=== PATIENT | female | born 1945 | race Caucasian/White ===

== ENCOUNTER 2018-12-06 19:58 | Inpatient (IN) | payer OTHER ==
[~2018-12-06] VITALS: Ht 165.1 cm; Wt 86.2 kg
[~2018-12-06 19:58] MED LIST: ASA325 PO; ASPIRIN81 MG PO; BUPROPION HCL75 MG PO; CALCIUM 600 +1 EAC2 PO; LISINOPRIL5 MG PO; PHENERGAN SUPP25 MG PO; PRAVASTATIN SOD40 MG PO; PROMETHEGAN12.5 MG PR
--- NOTE | 2018-12-06 21:27 | Diagnostic Imaging Report ---
EXAMINATION: Head CT without contrast. HISTORY:Fall. COMPARISON:Report of CT brain from 12/05/2012 and MRI brain from 12/06/2012. Prior images are not available for comparison at the time of interpretation. TECHNIQUE: Multidetector axial images were obtained from the foramen magnum to the vertex without contrast. The images were reconstructed using brain and bone algorithms. Thin section brain images were reformatted into coronal and sagittal planes. Dose modulation, iterative reconstruction, and/or weight based adjustment of the mA/kV was utilized to reduce the radiation dose to as low as reasonably achievable. Intravenous contrast: None IMAGE QUALITY: Suboptimal evaluation particularly at the level of skull base and posterior fossa due to streak artifacts. FINDINGS: Skull/scalp: No lytic or blastic. lesions. No surgical changes. Incidental hyperostosis frontalis interna. Parenchyma: Nonspecific bilateral frontoparietal confluent and patchy white matter hypodensity are likely related to small vessel ischemic changes. No acute hemorrhage, mass or acute major vascular territorial infarct. Arteries: No density suggestive of thrombosis. Atherosclerotic calcification in bilateral carotid siphon. Dural sinuses: No abnormal density suggestive of thrombosis. Ventricles: No hydrocephalus or displacement. Extra-axial spaces: No abnormal density. Brain volume: Normal for age. Craniocervical junction: No mass, Chiari malformation, or basilar invagination. Sella: No mass. Paranasal/mastoid sinuses: Imaged portions unremarkable. IMPRESSION: No acute posttraumatic intracranial abnormality. Chronic findings: Moderate supratentorial white matter microvascular ischemic changes. Signed by: Dr. Latosha Buckley M.D. on 12/06/2018 9:24 PM
--- NOTE | 2018-12-06 21:32 | Diagnostic Imaging Report ---
History: Fall. Comparison studies: None Technique: Axial images were obtained through the cervical region.. Coronal and sagittal images reconstructed from the axial data. Dose modulation, iterative reconstruction, and/or weight based adjustment of the mA/kV was utilized to reduce the radiation dose to as low as reasonably achievable. Intravenous contrast: None Findings: Fractures: None. Soft tissue injuries: None. Atlantoaxial articulation: Intact. Alignment: Loss of normal cervical lordosis is either positional or due to muscle spasm. No scoliosis. 1.5 mm grade 1 retrolisthesis at level C5-C6, is likely degenerative. Cervicomedullary junction: No abnormalities. The foramen magnum is patent. Soft tissues: No abnormalities. Vertebrae: No fractures, infection or neoplasm. Degenerative changes: C3-C4: Mild left foraminal stenosis due to facet and uncovertebral arthrosis. C4-C5: Moderate degenerative disc disease. Posterior disc osteophyte complex results in mild canal stenosis. Mild right foraminal stenosis due to uncovertebral arthrosis. C5-C6: Moderate degenerative disc disease. Posterior disc osteophyte complex without canal stenosis. Mild bilateral foraminal stenosis due to uncovertebral arthrosis. C6-C7: Moderate to severe degenerative disc disease. Moderate left foraminal stenosis due to uncovertebral arthrosis.. IMPRESSION: 1. No acute cervical spine fracture or dislocation. Loss of normal cervical lordosis is either positional or due to muscle spasm. 2. Ligament, spinal cord and or vascular abnormalities cannot be excluded on the basis of this examination. 3. Cervical spondylosis as detailed above. Signed by: Dr. Latosha Buckley M.D. on 12/06/2018 9:29 PM
--- NOTE | 2018-12-06 21:51 | Diagnostic Imaging Report ---
WRIST COMPLETE RIGHT - 3 views HISTORY: Pain COMPARISON: None available. FINDINGS: See impression. IMPRESSION: Questionable tiny avulsion fracture of the distal radial styloid process. Otherwise, no evidence of acute displaced fracture or dislocation of the right wrist. Severe first carpometacarpal degenerative changes. Signed by: Dr. Giovany Corral MD on 12/06/2018 9:48 PM
--- NOTE | 2018-12-06 21:53 | Diagnostic Imaging Report ---
KNEE RIGHT THREE VIEWS - 3 views HISTORY: Pain COMPARISON: None available. FINDINGS: See impression. IMPRESSION: Transverse mildly displaced fracture of the mid patella. Mild tricompartmental degenerative changes of the right knee. Signed by: Dr. Giovany Corral MD on 12/06/2018 9:50 PM
[2018-12-06] MEDS ORDERED: ULTRAM50 MG PO (23:01)
[2018-12-07] VITALS (8 sets, daily range): BP systolic 107–139; BP diastolic 58–87
--- NOTE | 2018-12-07 00:19 | NUR ---
Pt's imaging reviewed- shows mildly displaced patella fracture, and distal radio-styloid fracture. Pt did not want medication in the ED. Pt placed on a knee immobilizer and wrist splint to be discharged home with f/u. Pt informed Dr. Gonzalez would be contacted to arrange for outpt services. Spoke to family/pt at length about services in the home to assist in mobility. Daughter also stated she would staying with the patient. At time of discharge, family member(s) began yelling at nursing staff that patient can not be discharged home "like this". Nursing staff was assisting pt to the bathroom. Attempts made to speak to patient's daughter, however, daughter continued to shout and scream stating- "you are useless and good for nothing, you have done nothing for my mother, all you are doing is seeing other patients, this is the worst hospital in the world". Despite several attempts to interject and actually tell the daughter that we will be admiting the pt for monitoring, ortho evaluation and pain she would not allow me to speak. Family continued to berate myself nursing staff, escalating the volume of their voices in the hallway- stating their mother wasn't cared for. Pt informed she would be admitted. Pt continued to refuse pain medicine, local wound care performed. Dr. Nichols consulted.
--- NOTE | 2018-12-07 00:20 | NUR ---
CALLED FOR BATHROOM ASSIST WITH PT. DAUGHTER WAS SCREAMING THAT HER MOTHER NEEDS HELP TO THE RESTROOM WHILE ALL OF US WAS JUST SITTING AROUND, DISPITE TWO STAFF MEMBERS ALREADY IN THERE HELPING PT. PT ANGRY STATING THAT SHE CAN'T DO IT, SHE CAN'T GET UP AND SHE WON'T BE ABLE TO DO ANYTHING AT HOME. (FAMILY STATES THAT THEY ARE FROM OUT OF TOWN AND PT LIVES ALONE. PT WAS ASSISTED TO THE COMMODE WITH THREE STAFF MEMBERS, TWO HELPING WITH STANDING AND PIVOTING AND THE OTHER TO MOVE THE WC. THE PT FOR THE MOST PART IS A TWO PERSON ASSIST. IN THE MEAN TIME THE DAUGHTER WAS STILL TALKING DOWN TO THE DR AND STAFF SAYING THAT THIS WAS THE WORST HOSPITAL EVER AND THAT WE WERE NOT DOING ANYTHING FOR HER MOTHER. NURSING ELA TEACHER SITTING AT THE DESK, AWARE OF THE SITUATION.
[2018-12-07] MEDS ORDERED: ONDANSETRON HCL INJ 2MG/ML 2ML 2 MG/ML VIAL IV PRN (00:30)
--- NOTE | 2018-12-07 00:30 | NUR ---
PATIENT HELPED TO THE BATHROOM, PATIENT COMPLAINING OF PAIN BUT STATES SHE REFUSES TO TAKE ANY MEDICATION. PATIENT STATES THAT PAIN MEDICATION MAKES HER NAUSEATED, BUT COMPLAINTS OF 10/10 PAIN. PATIENT HELPED ON TO WHEELCHAIR, AND ROLLED TO BATHRROM. WHILE IN BATHROOM PATIENT STATES SHE CANNOT GET UP DUE TO KNEE IMOBILIZER SO TAKEN OFF. PATIENT FAMILY MEMBER SCREAMING AND CUSSING AND ME AND JAZMINE THAT WE NEED TO GET HER UP AND "YOUR NOT HELPING HER". DESPITE US HELPING HER FOR 20 MINUTES AND FAMILY MEMBER JUST WANTCHING US, HE BYRNE MEMBER STILL CUSSING AND BEING VERY RUDE. PATIENT STATES THERE ARE NURSES IN THE STATION AND DEMANDING THAT I GO AND GET MORE NURSES TO HELP BECAUSE THEY "ARE BEING LAZY". KNEE IMMOBILER OFF AND PATIENT HELPED LIFTED UPA ND PIVOTS TO TOILET WITH HELP. PATIENT COMPLAINING OF PAIN, AGAIN STATES SHE DOES NOT WANT TO TAKE PAIN MEDICATION. PATIENT AND FAMILY MEMBERS EXPLAINED THAT PAIN WILL BE IN PAIN LONG SHE CHOOSES TO NOT TAKE PAIN MEDICATION, EXPLAINED FRACTURES IN GENERAL ARE PAINFUL AND THE ONLY WAY TO HELP WITH PAIN IS PAIN MEDICATION. PATIENT AND FAMILY MEMBERS THEN STATE THEY WILL ALLOW PATIENT TO TAKE PAIN MEDICATION, MICHAELIGERANT FAMILY MEMBER LEFT HOSPITAL AT THIS POINT. PATIENTS EDUCATED ABOUT FRACTURES AND TREATMENT, PATIENT TOLD SHE WILL BE ADMITTED DUE TO PAIN, BUT EXPLAINED SHE NEEDS TO TAKE PAIN MEDICATION SO SHE CAN REDUCE HER AMOUNT OF PAIN. WHEN PAIN IS REDUCED THEN THAT WILL MAKE IT LESS PAINFUL FOR HER TO AMBULATE.
[2018-12-07] MEDS ORDERED: TRAMADOL HCL 50 MG TAB PO PRN (01:00)
--- NOTE | 2018-12-07 01:06 | NUR ---
dr sorto approved no iv on patient for observation.
--- OUTSIDE RECORDS SUMMARY | 2018-12-07 01:23 | XMS REPORT ---
Author Author [facility] Address Unknown Phone Unavailable Care Team Providers Care Mat Worker Name Role Phone Hedy PASTOR Unavailable Unavailable Problems This patient has no known problems. Allergies, Adverse Reactions, Alerts This patient has no known allergies or adverse reactions. Medications This patient has no known medications. Results Test Description Test Time Test Comments Text Results Atomic Results Result Comments KNEE RIGHT THREE VIEWS 2018-12-06 21:48:00 [place] [address] Patient Name: LUCIANO MYLES MR #: [id number] : 1945 Age/Sex: 73/F Req #: [id number] [facility] Physician: Ordered by: FAVIAN PASTOR MD Report #: [id number] Location: ER Room/Bed: Procedure: [id number] DX/KNEE RIGHT THREE VIEWS Exam Date: 12/06/18 Exam Time: 2114 REPORT STATUS: Signed KNEE RIGHT THREE VIEWS - 3 views HISTORY: Pain COMPARISON: None available. FINDINGS: See impression. IMPRESSION: Transverse mildly displaced fracture of the mid patella. Mild tricompartmental degenerative changes of the right knee. Signed by: Dr. Giovany Campos MD on 12/06/2018 9:50 PM Dictated By: GIOVANY CAPMOS MD 935 Transcribed By: APARNA on 12/06/182149 COPY TO: FAVIAN PASTOR MD WRIST COMPLETE RIGHT 2018-12-06 21:44:00 [place] [address] Patient Name: LUCIANO MYLES MR #: [id number] : 1945 Age/Sex: 73/F Req #: [id number] Adm Physician: Ordered by: FAVIAN PASTOR MD Report #: [id number] Location: ER Room/Bed: Procedure: [id number] DX/WRIST COMPLETE RIGHT Exam Date: 12/06/18 Exam Time: 2114 REPORT STATUS: Signed WRIST COMPLETE RIGHT - 3 views HISTORY: Pain CO MPARISON: None available. FINDINGS: See impression. IMPRESSION: Questionable tiny avulsion fracture of the distal radial styloid process. Otherwise, no evidence of acute displaced fracture or dislocation of the right wrist. Severe first carpometacarpal degenerative changes. Signed by: Dr. Giovany Campos MD on 12/06/2018 9:48 PM Dictated By: GIOVANY CAMPOS MD 47 Transcribed By: APARNA on 12/06/182147 COPY TO: FAVIAN PASTOR MD CT CERVICAL SPINE WO 2018-12-06 21:24:00 [place] [address] Patient Name: LUCIANO MYLES MR #: [id number] : 1945 Age/Sex: 73/F Req #: [id number] Adm Physician: Ordered by: FAVIAN PASTOR MD Report #: [id number] Location: Room/Bed: Procedure: [id number] CT/CT CERVICAL SPINE WO Exam Date: 12/06/18 Exam Time: 2100 REPORT STATUS: Signed History: Fall. Comparison studies: None Techn ique: Axial images were obtained through the cervical region.. Coronal and sagittal images reconstructed from the axial data. Dose modulation, iterative reconstruction, and/or weight based adjustment of the mA/kV was utilized to reduce the radiation dose to as low as reasonably achievable. Intravenous contrast: None Findings: Fractures: None. Soft tissue injuries: None. Atlantoaxial articulation: Intact. Alignment: Loss of normal cervical lordosis is either positional or due to muscle spasm. No scoliosis. 1.5 mm grade 1 retrolisthesis at level C5-C6, is likely degenerative. Cervicomedullary junction: No abnormalities. The foramen magnum is patent. Soft tissues: No abnormalities. Vertebrae: No fractures, infection or neoplasm. Degenerative changes: C3-C4: Mild left foraminal stenosis due to facet and uncovertebral arthrosis. C4-C5: Moderate degenerative disc disease. Posterior disc osteophyte complex results in mild canal stenosis. Mild right foraminal stenosis due to uncovertebral arthrosis. C5-C6: Moderate degenerative disc disease. Posterior disc osteophyte complex without canal stenosis. Mild bilateral foraminal stenosis due to uncovertebral arthrosis. C6-C7: Moderate to severe degenerative disc disease. Moderate left foraminal stenosis due to uncovertebral arthrosis.. IMPRESSION: 1. No acute cervical spine fracture or dislocation. Loss of normal cervical lordosis is either positional or due to muscle spasm. 2. Ligament, spinal cord and or vascular abnormalities cannot be excluded on the basis of this examination. 3. Cervical spondylosis as detailed above. Signed by: Dr. Latosha Buckley M.D. on 12/06/2018 9:29 PM Dictated By: LATOSHA BUCKLEY MD 28 Transcribed By: APARNA on 12/06/182128 COPY TO: FAVIAN PASTOR MD CT BRAIN WO 2018-12-06 21:20:00 [place] [id number] [place] [id number] Patient Name: LUCIANO MYLES MR #: [id number] : 1945 Age/Sex: 73/F Req #: [id number] Adm Physician: Ordered by: FAVIAN PASTOR MD Report #: [id number] Location: ER Room/Bed: Procedure: [id number] CT/CT BRAIN WO Exam Date: 12/06/18 Exam Time: 2099 REPORT STATUS: Signed EXAMINATION: Head CT without contrast. HISTORY:Fall. COMPARISON:Report of CT brain from 12/05/2012 and MRI brain from 12/06/2012. Prior images are not available for comparison at the time of interpretation. TECHNIQUE: Multidetector axial images were obtained from the foramen magnum to the vertex without contrast. The images were reconstructed using brain and bone algorithms. Thin section brain images were reformatted into coronal and sagittal planes. Dose modulation, iterative reconstruction, and/or weight based adjustment of the mA/kV was utilized to reduce the radiation dose to as low as reasonably achievable. Intravenous contrast: None IMAGE QUALITY: Suboptimal evaluation particularly at the level of skull base and posterior fossa due to streak artifacts. FINDINGS: Skull/scalp: No lytic or blastic. lesions. No surgical changes. Incidental hyperostosis frontalis interna. Parenchyma: Nonspecific bilateral frontoparietal confluent and patchy white matter hypodensity are likely related to small vessel ischemic changes. No acute hemorrhage, mass or acute major vascular territorial infarct. Arteries: No density suggestive of thrombosis. Atherosclerotic calcification in bilateral carotid siphon. Dural sinuses: No abnormal density suggestive of thrombosis. Ventricles: No hydrocephalus or displacement. Extra-axial spaces: No abnormal density. Brain volume: Normal for age. Craniocervical junction: No mass, Chiari malformation, or basilar invagination. Sella: No mass. Paranasal/mastoid sinuses: Imaged portions unremarkable. IMPRESSION: No acute posttraumatic intracranial abnormality. Chronic findings: Moderate supratentorial white matter microvascular ischemic changes. Signed by: Dr. Latosha Buckley M.D. on 12/06/2018 9:24 PM Dictated By: LATOSHA BUCKLEY MD 23 Transcribed By: APARNA on 12/06/182123 COPY TO: FAVIAN PASTOR MD
[2018-12-07] MEDS ORDERED: IBUPROFEN 400 MG TAB PO PRN (01:30)
[2018-12-07] MEDS: ONDANSETRON HCL 4 MG ORAL DISINTEGRATING TAB PO PRN ×2 (01:31→18:04)
[2018-12-07] MEDS: MORPHINE SULFATE INJ 4 MG/ML INJ 1ML IV PRN ×2 (03:12→18:04)
--- NOTE | 2018-12-07 06:02 | NUR ---
Dr. Elizondo called and ordered to consult Dr. Aguilera for medical management, Dr. Aguilera called, and message left.
--- NOTE | 2018-12-07 06:49 | NUR ---
Dr. Nichols acknowledged consult.
--- NOTE | 2018-12-07 06:55 | NUR ---
Patient endorsed to next shift for continuity of care.
[2018-12-07] MEDS ORDERED: CELECOXIB 200 MG CAP PO PRN (10:30)
--- NOTE | 2018-12-07 16:54 | History and Physical ---
PRIMARY CARE PHYSICIAN: Jonathan Gonzalez MD BAND PRESSER: Dr. Wesley Nichols. Patient has coverage. CHIEF COMPLAINT: Status post fall with right transverse mildly displaced fractures of the mid patella. Right wrist questionable tiny avulsion fracture of the distal radial styloid process. HISTORY OF PRESENT ILLNESS: The patient is a pleasant 73-year-old female with accidental fall, it occurred while she was walking, fell on her face and on the right side, suffered right transverse mildly displaced fracture of the mid patella. The patient is having difficulty with movement. She is unable to ambulate. The patient is admitted for possible orthopedic surgical intervention. PAST MEDICAL HISTORY: 1. Coronary artery disease with stent back in 2010. 2. Hypertension. 3. Dyslipidemia. PAST SURGICAL HISTORY: 1. Right total hip replacement. 2. Coronary stent. SOCIAL HISTORY: The patient does not smoke or use alcohol. No recreational drugs. ALLERGIES: CODEINE. HOME MEDICATIONS: The patient is on: 1. Aspirin. 2. Vitamin D3. 3. Lisinopril. 4. Pravastatin. 5. Promethazine. PHYSICAL EXAMINATION: VITAL SIGNS: Temperature is 98, blood pressure 126/61, pulse rate is 55, and respirations 18. GENERAL: The patient is not in acute distress. She is awake. HEENT: Normocephalic and atraumatic. Anicteric. NECK: Supple grossly. PULMONARY: Clear. CARDIOVASCULAR: Regular rate and rhythm. ABDOMEN: Soft and unremarkable. EXTREMITIES: Right knee swelling status post fall with mid patella fracture. Right wrist on brace. Multiple bruises. NEUROLOGIC: No focal deficit. LABORATORY DATA: None for now. We will obtain. IMPRESSION: 1. Right transverse mildly displaced fracture of the mid patella. 2. Right wrist sprain. PLAN: Consultation with Dr. Wesley Nichols. Ice packing. DVT prophylaxis. Pain control. Resume home medication. We will hold off aspirin for now. MD KHOA Teixeira/MODL /[id number]
[2018-12-07] MEDS: CALCIUM CARBONATE PO SCH (17:00)
[2018-12-07] MEDS: VITAMIN D3 PO SCH (17:00)
[2018-12-07] MEDS: SENNOSIDES 8.6 MG TAB PO SCH (18:04)
--- NOTE | 2018-12-07 19:00 | NUR ---
RECEIVED REPORT FROM DAY NURSE. PATIENT IS RESTING COMFORTABLY IN BED. BED IS IN LOWEST POSITION AND CALL BEL IS WITHIN REACH. WILL CONTINUE TO MONITOR PATIENT.
[2018-12-07] MEDS: HEPARIN SOD (PORCINE) 5,000 UNIT/ML VIAL SC SCH (21:00)
[2018-12-08] VITALS (7 sets, daily range): BP systolic 130–150; BP diastolic 59–76
--- NOTE | 2018-12-08 07:13 | NUR ---
report given to day nurse. patient is resting comfortably in bed. bed is in lowest position and call motley is within reach.
[2018-12-08] MEDS: HEPARIN SOD (PORCINE) 5,000 UNIT/ML VIAL SC SCH ×2 (08:05→20:31)
[2018-12-08] MEDS: LISINOPRIL 2.5 MG TAB PO SCH (08:06)
[2018-12-08] MEDS: SENNOSIDES 8.6 MG TAB PO SCH ×2 (08:06→17:13)
[2018-12-08] MEDS: CALCIUM CARBONATE PO SCH ×2 (08:13→17:18)
[2018-12-08] MEDS: VITAMIN D3 PO SCH ×2 (08:13→17:18)
--- NOTE | 2018-12-08 09:51 | Consultation ---
DATE OF CONSULTATION: 12/07/2018 CHIEF COMPLAINT: Right knee and right wrist pain. HISTORY OF PRESENT ILLNESS: This patient is a 73-year-old female, who presents to the hospital complaining of right knee and right wrist pain. The patient states that yesterday she was walking into a restaurant, she tripped and fell, landing on her right knee and right wrist. She states that she was unable to get up and bear weight on the right leg. She was brought in by EMS to [facility] ER. She had x-rays of the right wrist and right knee and Orthopedics was consulted. She states prior to the fall that she walked independently. PAST MEDICAL HISTORY: See H and P. PAST SURGICAL HISTORY: Right total hip replacement with our service. SOCIAL HISTORY: The patient denies smoking or ETOH use. ALLERGIES: CODEINE. MEDICATIONS: See MAR. PHYSICAL EXAMINATION: In general, this is a pleasant, well-nourished, female, who is in no apparent distress. She is awake, alert, and oriented appropriately. Gross inspection of her right wrist shows her to be in a thumb spica removable wrist brace. This was removed to inspect the soft tissues. There is some mild swelling in the wrist. She has isolated tenderness to palpation over the radial styloid. She has diminished range of motion in the wrist. She can make a comprehensive fist. Distal neurovascular exam of the right upper extremity is intact. Gross inspection of her right knee shows moderate swelling. There is some slight bruising around the knee. The knee is diffusely tender to palpation. I did not test range of motion given her level of discomfort. She cannot do a straight leg raise without an extensor lag. The knee appears grossly stable to varus and valgus stress. Distal motor exam at the right ankle is intact. Distal neurovascular exam on the right lower extremity is normal. IMAGING: X-rays of the right wrist show a nondisplaced radial styloid fracture. X-rays of the right knee show a displaced transverse fracture of the patella. ASSESSMENT AND PLAN: This is a 73-year-old female with a right distal radius fracture and a right patellar fracture. The treatment was discussed with the patient. I explained the fracture in her wrist can be treated nonsurgically. She will continue to use the removable wrist brace. I explained the right patellar fracture is surgical. The risks and benefits of the surgery were explained. The recovery was discussed. The patient states she understands and wishes to proceed. We will plan on open reduction and internal fixation of the right patella on Sunday next week. All the patient's questions were answered and she agrees with the plan. Thank you for the consultation. Dictated by Da Frank PA-C MD BRITNEY Sanchez/JESUS /[id number]
[2018-12-08] MEDS ORDERED: BISACODYL 10 MG SUPP PR PRN (10:15)
[2018-12-08] MEDS ORDERED: MAGNESIUM HYDROXIDE 30 ML UDC PO PRN (10:15)
--- NOTE | 2018-12-08 14:15 | NUR ---
PT ASKED TO BE PICKED UP AND PLACED ON BEDSIDE COMMODE, BED ANDREWS OFFERED, PT REFUSED BED ANDREWS, PT EDUCATED ON PROPER BODY MECHANICS AND TRANSFER PROTOCOL, PT REMAINS INSISTING TO BE PICKED UP AND PLACED ON BEDSIDE COMMODE. CHARGE NURSE GREY BRUNNER RN NOTIFIED. CHARGE NURSE AT BEDSIDE.
--- NOTE | 2018-12-08 19:24 | NUR ---
report given to oncoming nurse. pt stable.
--- NOTE | 2018-12-08 19:25 | NUR ---
report given to oncoming nurse. pt stable.
--- NOTE | 2018-12-08 19:28 | NUR ---
Bedside report and walking rounds complete. Pt resting in bed and in no apparent distress. Room air, no tele. Pt family at bedside. All safety measures ensured, bed alarm on, and pt call motley near. Pt encouraged to use call motley for assistance.
[2018-12-08] MEDS: PRAVASTATIN 20 MG TAB PO SCH (20:30)
[2018-12-08] MEDS: ONDANSETRON HCL 4 MG ORAL DISINTEGRATING TAB PO PRN (21:29)
[2018-12-08] MEDS: MORPHINE SULFATE INJ 4 MG/ML INJ 1ML IV PRN (21:29)
[2018-12-09] VITALS (8 sets, daily range): BP systolic 99–127; BP diastolic 52–68
--- NOTE | 2018-12-09 01:32 | NUR ---
Pt assisted to bedside commode with help of myself and 2 techs. Pt had large BM. Pt cleaned and bed changed. Pt tolerated well and stated she feels much better after having BM.
--- NOTE | 2018-12-09 07:15 | NUR ---
received patient lying in bed with eyes open and tv on. family at bedside. patient appears to be in pleasant mood, smiling. no c/o pain at this time. call light within reach.
--- NOTE | 2018-12-09 07:33 | NUR ---
Bedside report and walking rounds complete.
[2018-12-09] MEDS: HEPARIN SOD (PORCINE) 5,000 UNIT/ML VIAL SC SCH ×2 (08:12→21:34)
[2018-12-09] MEDS: VITAMIN D3 PO SCH ×2 (08:12→16:48)
[2018-12-09] MEDS: CALCIUM CARBONATE PO SCH ×2 (08:12→16:48)
[2018-12-09] MEDS: SENNOSIDES 8.6 MG TAB PO SCH ×2 (08:12→16:37)
[2018-12-09] MEDS: LISINOPRIL 2.5 MG TAB PO SCH (08:12)
[2018-12-09] MEDS ORDERED: CEFAZOLIN SOD 1 GM/NS 50ML 50 ML IV ONE (09:00)
--- NOTE | 2018-12-09 10:16 | NUR ---
IMM EXPLAINED TO PT'S DTR, BRUNILDA GO AT BEDSIDE, (PT SEDATED FROM PAIN MEDS AND ASLEEP), SIGNED BY DTR AND PLACED IN CHART COPY TO PT IN CARE TRANSITIONS FOLDER
--- NOTE | 2018-12-09 10:32 | NUR ---
PATIENT OFF UNIT FOR ORIF RIGHT KNEE.
[2018-12-09] MEDS ORDERED: MUPIROCIN 2% OINT 22 GM TUBE ONE (10:57)
[2018-12-09] MEDS ORDERED: BUPIVACAINE 0.5%/EPI 30 ML SDV INJ ONE (10:57)
[2018-12-09] MEDS ORDERED: IBUPROFEN 800MG/ 250ML 250 ML IV ONE (12:08)
[2018-12-09 12:19] LABS: BASOPHILS % 0.4 % (0.0-1.0); EOSINOPHILS # (AUTO) 0.1 (0.0-0.4); EOSINOPHILS % 1.5 % (0.0-6.0); HEMATOCRIT 36.4 % (34.2-44.1); HEMOGLOBIN 12.2 g/dL (12.0-16.0); LYMPHOCYTES % 29.4 % (18.0-39.1); MEAN CORPUSCULAR HEMOGLOBIN 30.7 pg (28-32); MEAN CORPUSCULAR HGB CONC 33.5 g/dL (31-35); MEAN CORPUSCULAR VOLUME 91.7 fL (81-99); MONOCYTES # (AUTO) 0.6 (0.2-0.8); MONOCYTES % 8.1 % (4.4-11.3); NEUTROPHILS # (AUTO) 4.1 (2.1-6.9); NEUTROPHILS % 60.3 % (38.7-80.0); PLATELET COUNT 243 x10e3/uL (140-360); RED BLOOD COUNT 3.97 x10e6/uL (3.6-5.1); RED CELL DISTRIBUTION WIDTH 13.2 % (11.7-14.4)
[2018-12-09] MEDS ORDERED: KETOROLAC TROMETHAMINE 30 MG/ML VIAL IV PRN (12:30)
[2018-12-09] MEDS ORDERED: HYDROCODONE/APAP 5MG-325MG TAB PO PRN (12:30)
[2018-12-09] MEDS ORDERED: PROMETHAZINE HCL (IM) 25 MG/ML VIAL IM PRN (12:30)
[2018-12-09] MEDS ORDERED: DIPHENHYDRAMINE HCL INJ 50 MG/ML VIAL IM/IV PRN (12:30)
[2018-12-09] MEDS ORDERED: DOCUSATE SODIUM 100 MG CAP PO PRN (12:30)
[2018-12-09] MEDS ORDERED: HYDROCODONE/APAP 7.5MG-325MG 1 EA TAB PO PRN (12:30)
[2018-12-09] MEDS ORDERED: ACETAMINOPHEN 650 MG SUPP PR PRN (12:30)
[2018-12-09] MEDS ORDERED: ONDANSETRON HCL INJ 2MG/ML 2ML 2 MG/ML VIAL IV PRN (12:30)
[2018-12-09 12:39] LABS: ANION GAP 12.8 mmol/L (8-16); BLOOD UREA NITROGEN 13 mg/dL (7-26); BUN/CREATININE RATIO 16 (6-25); CALCIUM 9.3 mg/dL (8.4-10.2); CARBON DIOXIDE 27 mmol/L (22-29); CHLORIDE 103 mmol/L (98-107); CREATININE, SERUM 0.82 mg/dL (0.57-1.11); EST GLOMERULAR FILTRATION RATE > 60 ML/MIN (60-); GLUCOSE 95 mg/dL (74-118); POTASSIUM 3.8 mmol/L (3.5-5.1); SODIUM 139 mmol/L (136-145)
[2018-12-09] MEDS: SODIUM CHLORIDE 0.9% 1000ML 1,000 ML IV SCH ×2 (13:16→21:03)
[2018-12-09] MEDS: ASPIRIN 325 MG TAB PO SCH (16:36)
[2018-12-09] MEDS: CELECOXIB 200 MG CAP PO SCH (16:37)
[2018-12-09] MEDS ORDERED: CELECOXIB 100 MG CAP PO SCH (17:00)
--- NOTE | 2018-12-09 17:07 | Operative Report ---
DATE OF PROCEDURE: 12/09/2018 SURGEON: Wesley Nichols MD REPAIR TECHNICIAN: Da Frank PA-C PREOPERATIVE DIAGNOSIS: Displaced right patella fracture. POSTOPERATIVE DIAGNOSIS: Displaced right patella fracture. PROCEDURE: Open reduction and internal fixation of displaced transverse right patella fracture. INDICATIONS: The patient is a 73-year-old woman, who fell and sustained a fracture of her right patella. The findings and options have been discussed. We recommend an open reduction with internal fixation. The risks and benefits have been explained. She states she understands and wishes to proceed. PROCEDURE IN DETAIL: The patient was brought to the operating room and placed under general anesthetic. She received prophylactic antibiotics in the holding area. Her right lower extremity was prepped and draped in a sterile manner. A preoperative time-out was performed. The extremity was exsanguinated and a proximal tourniquet was inflated to 300 mmHg. A vertical incision over the right knee was made. The fracture site was carefully exposed and reduced. Limited periosteal stripping was performed. An intraoperative C-arm image intensifier was used to confirm satisfactory reduction. Two Steinmann pins were placed in a vertical manner across the fracture site. These were 2.0 mm in diameter. Again, intraoperative x-rays confirmed satisfactory positioning of the hardware. A 16-gauge tension band wire was then applied and placed under tension. The ends were cut short and buried in soft tissue. The Steinmann pins were bent and buried in soft tissue as well. Final x-rays confirmed a near anatomic reduction and good positioning of the hardware. The wounds were irrigated and closed with subcuticular Vicryl and nylon stitches. A sterile bandage was applied. She was returned to a knee immobilizer. She was extubated and transported to the recovery room in stable condition. Blood loss was minimal. All needle and sponge counts were correct. Wesley Nichols MD DR/JESUS /[id number]
[2018-12-09] MEDS: CEFAZOLIN SOD 1 GM/NS 50ML 50 ML IV SCH (17:23)
[2018-12-09] MEDS ORDERED: ONDANSETRON HCL INJ 2MG/ML 2ML 2 MG/ML VIAL ONE (17:26)
[2018-12-09] MEDS ORDERED: ACETAMINOPHEN 1000 MG/100 ML IV ONE (17:26)
[2018-12-09] MEDS ORDERED: DEXAMETHASONE SOD PHOS INJ 4 MG/ML VIAL ONE (17:26)
[2018-12-09] MEDS ORDERED: PROPOFOL IV EMULSION 10 MG/ML 20 ML VIAL ONE (17:26)
[2018-12-09] MEDS ORDERED: CEFAZOLIN SOD 1 GM VIAL ONE (17:26)
[2018-12-09] MEDS ORDERED: SEVOFLURANE INHAL SOLN 250 ML PEN BTL ONE (17:26)
[2018-12-09] MEDS ORDERED: LIDOCAINE HCL 2% LOCAL INJ 5 ML SDV VIAL INJ ONE (17:26)
[2018-12-09] MEDS: ACETAMINOPHEN 1000 MG/100 ML IV SCH (18:30)
[2018-12-09] MEDS ORDERED: ZOLPIDEM TARTRATE 5 MG TAB PO PRN (21:00)
[2018-12-09] MEDS: PRAVASTATIN 20 MG TAB PO SCH (21:03)
[2018-12-10] VITALS (8 sets, daily range): BP systolic 105–135; BP diastolic 58–72
[2018-12-10] MEDS: ACETAMINOPHEN 1000 MG/100 ML IV SCH ×3 (00:29→14:00)
[2018-12-10] MEDS: CEFAZOLIN SOD 1 GM/NS 50ML 50 ML IV SCH ×2 (02:25→09:04)
[2018-12-10 05:41] LABS: HEMATOCRIT 35.5 % (34.2-44.1); HEMOGLOBIN 11.8 g/dL (12.0-16.0)
--- NOTE | 2018-12-10 06:49 | NUR ---
REMOVED IMMOBILIZER AND JUAN WRAP. AQUACEL DRESSING IN PLACE. APPLIED DONIS HOSE AND REAPPLIED IMMOBILIZER . PATIENT TOLERATED WELL.
--- NOTE | 2018-12-10 07:28 | NUR ---
pt alert resp even and unlabored this time no distress noted pt able to make needs known call light in reach, family member at bedside.will cont to monitor.
[2018-12-10] MEDS: SODIUM CHLORIDE 0.9% 1000ML 1,000 ML IV SCH ×2 (08:59→18:28)
[2018-12-10] MEDS: LISINOPRIL 2.5 MG TAB PO SCH (09:04)
[2018-12-10] MEDS: SENNOSIDES 8.6 MG TAB PO SCH ×2 (09:04→17:41)
[2018-12-10] MEDS: CELECOXIB 200 MG CAP PO SCH ×2 (09:04→17:41)
[2018-12-10] MEDS: CALCIUM CARBONATE PO SCH ×2 (09:04→17:41)
[2018-12-10] MEDS: VITAMIN D3 PO SCH ×2 (09:04→17:41)
[2018-12-10] MEDS: ASPIRIN 325 MG TAB PO SCH ×2 (09:04→17:41)
--- NOTE | 2018-12-10 12:18 | Diagnostic Imaging Report ---
CT BRAIN WO HISTORY: Headache COMPARISON: Head CT 12/06/2018 TECHNIQUE: Noncontrast axial scans were obtained from skull base to the vertex. Coronal and sagittal reconstructions obtained from the axial data. One or more of the following dose reduction techniques were used: Automated exposure control, adjustment of the mA and/or kV according to patient size, and/or utilization of iterative reconstruction technique. DISCUSSION: Scalp/Skull: Unremarkable. Brain sulci: Mildly prominent. Ventricles: Compensatory dilatation. Extra-axial spaces: No masses or fluid collections. Carotid siphon calcifications are present. Parenchyma: Moderate bilateral deep white matter hypodensity is likely chronic microvascular ischemic change. Otherwise, no masses, hemorrhage, or large vascular territory acute infarct. Dural sinuses: No abnormal densities. Sellar/Suprasellar region: Intact. Skull base: Intact. Incidental findings: None. IMPRESSION: 1. No acute intracranial abnormalities. 2. Moderate supratentorial chronic microvascular ischemic change. Mild generalized cerebral volume loss. Signed by: Dr. Ross Patel M.D. on 12/10/2018 12:15 PM
[2018-12-10] MEDS ORDERED: ACETAMINOPHEN 1000 MG/100 ML IV PRN (12:30)
--- NOTE | 2018-12-10 13:05 | NUR ---
Discussed pt in rounds. PT states pt walking 110 ft and they are recommending home health. Pt would need rolling walker. Spoke to pt at bedside regarding discharge planning. Pt states that she does not want to go to a facility. She would rather go home with home health. Pt states that she thinks she previously used [facility]. CM called [facility] and they said pt was never on service with them. CM informed pt. Pt states to use any company that is in network and that Dr. Nichols uses. Choice letter signed for [facility] and [facility]. Home Health referral was faxed to [facility]
--- NOTE | 2018-12-10 16:11 | NUR ---
Received call from An with intake at [facility]. They will be accepting pt. Informed her pt will discharge tomorrow.
[2018-12-10] MEDS: HEPARIN SOD (PORCINE) 5,000 UNIT/ML VIAL SC SCH ×2 (16:43→21:22)
--- NOTE | 2018-12-10 19:23 | NUR ---
REPORT GIVEN TO ONCOMING NURSE, PT STABLE AT THIS TIME.
[2018-12-10] MEDS ORDERED: SIMVASTATIN 20 MG TAB PO SCH (21:00)
[2018-12-11 00:22] VITALS: BP 131/58
[2018-12-11 04:00] VITALS: BP 143/60
[2018-12-11] MEDS: SODIUM CHLORIDE 0.9% 1000ML 1,000 ML IV SCH (04:28)
[2018-12-11 06:04] LABS: BASOPHILS % 0.3 % (0.0-1.0); EOSINOPHILS # (AUTO) 0.1 (0.0-0.4); EOSINOPHILS % 0.8 % (0.0-6.0); HEMATOCRIT 34.5 % (34.2-44.1); HEMOGLOBIN 11.1 g/dL (12.0-16.0); LYMPHOCYTES # (AUTO) 1.9 (1.0-3.2); LYMPHOCYTES % 24.8 % (18.0-39.1); MEAN CORPUSCULAR HEMOGLOBIN 30.1 pg (28-32); MEAN CORPUSCULAR HGB CONC 32.2 g/dL (31-35); MEAN CORPUSCULAR VOLUME 93.5 fL (81-99); MONOCYTES # (AUTO) 0.7 (0.2-0.8); MONOCYTES % 9.4 % (4.4-11.3); NEUTROPHILS % 64.3 % (38.7-80.0); PLATELET COUNT 252 x10e3/uL (140-360); RED BLOOD COUNT 3.69 x10e6/uL (3.6-5.1); RED CELL DISTRIBUTION WIDTH 13.1 % (11.7-14.4)
[2018-12-11 06:36] LABS: ANION GAP 12.9 mmol/L (8-16); BLOOD UREA NITROGEN 13 mg/dL (7-26); BUN/CREATININE RATIO 15 (6-25); CALCIUM 8.9 mg/dL (8.4-10.2); CARBON DIOXIDE 25 mmol/L (22-29); CHLORIDE 105 mmol/L (98-107); CREATININE, SERUM 0.85 mg/dL (0.57-1.11); EST GLOMERULAR FILTRATION RATE > 60 ML/MIN (60-); GLUCOSE 95 mg/dL (74-118); POTASSIUM 3.9 mmol/L (3.5-5.1); SODIUM 139 mmol/L (136-145)
--- NOTE | 2018-12-11 06:52 | NUR ---
Patient condition throughout the night was stable, patient endorsed to next shift for continuity of care.
[2018-12-11 08:33] VITALS: BP 118/58
--- NOTE | 2018-12-11 08:36 | Consultation ---
DATE OF CONSULTATION: 12/07/2018 CHIEF COMPLAINT: Right wrist and right knee pain. HISTORY OF PRESENT ILLNESS: This patient is a 73-year-old female, who complains of right wrist and right knee pain after suffering a fall. The patient states she was walking into a restaurant and tripped on a curb. She states she landed on her right knee and right wrist. She states she was unable to get up and bear weight. She was brought into the ER and had x-rays of the right knee and right wrist. She was noted to have a right patellar fracture and a right distal radial styloid fracture and Orthopedics was consulted. PAST MEDICAL HISTORY: See H and P. MEDICATIONS: See AUG. ALLERGIES: CODEINE. PHYSICAL EXAMINATION: In general, this is a well-nourished female, who is in no apparent distress. She is awake, alert, and oriented appropriately. Gross inspection of her right wrist shows some mild bruising and swelling. She has some tenderness to palpation of the radial styloid. She is wearing a removable wrist brace. She can make a comprehensive fist. Distal neurovascular exam in the right upper extremity is normal. Gross inspection of the right knee shows diffuse swelling. There is some mild bruising over the anterior aspect. She has tenderness to palpation with a palpable defect over the right patella. She cannot do a straight leg raise without an extensor lag. I did not attempt range of motion due to her level of discomfort. The knee appears grossly stable with varus and valgus stress. Distal motor exam at the ankle and foot is normal. Distal neurovascular exam in the right lower extremity is normal. IMAGING: X-rays of the right wrist show a nondisplaced radial styloid fracture. X-rays of the right knee show a displaced patellar fracture. ASSESSMENT AND PLAN: This is a 73-year-old female with a right patellar fracture and a right radial styloid fracture. The findings and options were discussed with the patient. I explained she can treat the wrist fracture with the wrist brace. This can be a nonsurgical management. The treatment for the right patellar fracture was discussed. I explained the standard of care is open reduction internal fixation. The risks and benefits of the surgery explained. The recovery was discussed. The patient states she understands and wished to proceed. We will plan on putting her on the surgery schedule on Sunday for an open reduction and internal fixation of the right patella. Thank you for the consultation. Dictated by Da H Mahlstedt, PA-C MD BRITNEY Sanchez/JESUS /[id number]
[2018-12-11] MEDS: VITAMIN D3 PO SCH (09:00)
[2018-12-11] MEDS: CALCIUM CARBONATE PO SCH (09:00)
[2018-12-11] MEDS: CELECOXIB 200 MG CAP PO SCH (09:31)
[2018-12-11] MEDS: LISINOPRIL 2.5 MG TAB PO SCH (09:31)
[2018-12-11] MEDS: SENNOSIDES 8.6 MG TAB PO SCH (09:31)
[2018-12-11] MEDS: ASPIRIN 325 MG TAB PO SCH (09:31)
[2018-12-11] MEDS: HEPARIN SOD (PORCINE) 5,000 UNIT/ML VIAL SC SCH (09:35)
--- NOTE | 2018-12-11 11:20 | NUR ---
IMM EXPLAINED TO PT, SIGNED BY PT AND PLACED ON CHART COPY TO PT IN CARE TRANSITIONS FOLDER
[2018-12-11 12:45] VITALS: BP 126/64
[2018-12-11] MEDS ORDERED: OMEPRAZOLE20 MG PO (13:28)
[2018-12-11] MEDS ORDERED: NORCO 10-325 T1 EACH PO (13:28)
[2018-12-11] MEDS ORDERED: ECOTRIN325 MG PO (13:29)
[2018-12-11] MEDS ORDERED: SENOKOT8.6 MG PO (13:30)
--- NOTE | 2018-12-11 13:34 | NUR ---
Pt requesting transport chair. States can use any company that takes her insurance. DC called Omar with [employer] to inquire about whether or not pt's insurance would cover for walker and transport chair. He states the insurance does cover both, but would require authorization and copay would need to be paid prior to delivery. CM informed pt of above. Pt agreeable to get walker from hospital and wait for authorization from insurance for chair at home. Walker was provided to pt from PACU. [facility] form returned to PACU. DC received order from Dr. Aguilera to order chair for pt. Choice letter signed for [facility] and placed in chart. Copy to pt. Order faxed to [facility] at [phone] Home Health information was printed and given to pt. Informed her that they have accepted her. DC called and spoke to An with intake and informed her that pt is discharging today. They have pt scheduled to be seen tomorrow.
== END 2018-12-11 14:07 | disposition home health service (06) | DRG 516 ==
LOC: ER 19:58 → ERHOLD 12-07 01:21 → IMCU 12-07 01:25 → OBSVTOIN 12-07 10:24 → MED/SURG 12-08 13:17
PROVIDERS: ADMIT Internal Medicine; ATTEND Internal Medicine
PROC: 0QSD04Z Reposition Right Patella with Internal Fixation Device, Open Approach (ICD-10-PCS; principal; 2018-12-09 11:41)
DX: S82.031A Displaced transverse fracture of right patella, initial encounter for closed fracture (principal); S52.511A Displaced fracture of right radial styloid process, initial encounter for closed fracture; W01.0XXA Fall on same level from slipping, tripping and stumbling without subsequent striking against object, initial encounter; Y93.01 Activity, walking, marching and hiking; I25.10 Atherosclerotic heart disease of native coronary artery without angina pectoris; Z95.5 Presence of coronary angioplasty implant and graft; Z96.641 Presence of right artificial hip joint; R51 Headache
CPT/HCPCS: 36415; 70450; 72125; 76000; 80048; 85014; 85018; 85025; 97139; 99284; J0690; J1100; J1644; J1885; J2001; J2270; J2405; J7030; Q0162

== ENCOUNTER → 2021-10-03 | Outpatient (CLI) | payer MEDICARE ==
[~2021-10-03] MED LIST changes: +ECOTRIN325 MG PO; +NORCO 10-325 T1 EACH PO; +OMEPRAZOLE20 MG PO; +SENOKOT8.6 MG PO; +ULTRAM50 MG PO
== END ==
LOC: MRI 11:25
PROVIDERS: ATTEND Psychiatry & Neurology Neurology
DX: R41.89 Other symptoms and signs involving cognitive functions and awareness (principal)
CPT/HCPCS: 70551